=== PATIENT | male | born 1970 | race Caucasian/White ===

== ENCOUNTER → 2023-08-01 08:07 | Outpatient (CLI) | payer BC, SELFPAY ==
--- NOTE | ~2023-08-01 | CT_ITS ---
CT Scan of the Chest without Contrast: Clinical Indication: Lung cancer screening, smoking history Technique: Contiguous sections were acquired throughout the chest without intravenous contrast. Dose reduction technique was used on this scan by utilizing automated exposure control and iterative recon struction technique. The dose-length product (DLP) was 64.58 mGy-cm. Findings: There is no evidence of any significant mediastinal, hilar or axillary lymphadenopathy. The mediastin al soft tissues appear normal. There is no evidence of pleural or pericardial effusion. 2 mm right upper lobe pulmonary nodule noted. Mild emphysema noted. 5 mm perifissural nodule noted in the right middle lobe. There are mild interstitial opacities with minimal nodularity in the left low er lobe inferiorly. Images through the upper abdomen reveal no abnormalities. Probable late subacute versus chronic fract ure deformity of the upper sternal body. Impression: Lung RADS 2: Benign appearance. 12 month follow-up screening CT advised. Reviewed, dictated and finalized at [facility]. COMPOSER FEEDER Impression: Lung RADS 2: Benign appearance. 12 month follow-up screening CT advised.
== END ==
PROVIDERS: PCP Internal Medicine; Visit Provider Internal Medicine
DX: Z12.2 Encounter for screening for malignant neoplasm of respiratory organs (principal); Z87.891 Personal history of nicotine dependence
CPT/HCPCS: 71271

== ENCOUNTER 2024-08-03 15:31 | Outpatient (CLI) | payer BC, SELFPAY ==
--- NOTE | ~2024-08-03 | CT_ITS ---
CT Scan of the Chest without Contrast: Clinical Indication: Nicotine dependence Technique: Contiguous sections were acquired throughout the chest without intravenous contrast. Dose reduction technique was used on this scan by utilizing automated exposure control and iterative recon struction technique. The dose-length product (DLP) was 102.80 mGy-cm. COMPARISON: 08/01/2023 Findings: There is no evidence of any significant mediastinal, hilar or axillary lymphadenopathy. The mediastin al soft tissues appear normal. There is no evidence of pleural or pericardial effusion. Stable 2 mm right upper lobe pulmonary nodule. Nodule adjacent to the right minor fissure seen on chaparro or exam is resolved. There is mild to moderate emphysema in the upper lobes. Images through the upper abdomen reveal no abnormalities. Impression: Mild to moderate emphysema. Stable 2 mm right upper lobe pulmonary nodule. Additional right middle lobe nodule is resolved. Reviewed, dictated and finalized at [facility]. CHECKER Impression: Mild to moderate emphysema. Stable 2 mm right upper lobe pulmonary nodule. Additional right middle lobe nod ule is resolved.
== END 2024-08-03 15:32 | disposition home or self-care (01) ==
LOC: MICIMG 15:33
PROVIDERS: PCP Internal Medicine; Visit Provider Internal Medicine
DX: Z12.2 Encounter for screening for malignant neoplasm of respiratory organs (principal); F17.211 Nicotine dependence, cigarettes, in remission; J43.9 Emphysema, unspecified; R91.8 Other nonspecific abnormal finding of lung field
CPT/HCPCS: 71250

== ENCOUNTER 2025-08-04 15:37 | Outpatient (CLI) | payer BC, SELFPAY ==
--- NOTE | ~2025-08-04 | CT_ITS ---
EXAMINATION: CT lung screening DATE: 08/04/2025 15:59 INDICATION: Nicotine dependence TECHNIQUE: Computed tomography (CT) of the chest was performed without intravenous contrast. The dose-length product was 103.71 mGy-cm. Automated exposure control and iterative reconstruction technique were employed. COMPARISON: Comparison to multiple prior studies sequentially, with oldest reviewed study dated CT dated 08/01/2023. FINDINGS: Heart size normal. No significant pleural or pericardial effusion. No thoracic lymphadenopathy. There is an accessory splenule in the upper abdomen. Otherwise, the upper abdomen is unremarkable. There is emphysema. No endobronchial lesions. There is a 2 mm right upper lobe nodule. No pneumothorax. No focal airspace consolidation. No new pulmonary nodules or masses. Mild thoracic spondylosis. IMPRESSION: 1. Lung-RADS category 2: Benign appearance or behavior. Continue annual screening with noncontrast low-dose chest CT in 12 months. Reviewed, dictated and finalized at [facility]. SORTER IMPRESSION: 1. Lung-RADS category 2: Benign appearance or behavior. Continue annual screeni ng with noncontrast low-dose chest CT in 12 months.
== END 2025-08-04 15:38 | disposition home or self-care (01) ==
LOC: MICIMG 15:37
PROVIDERS: PCP Internal Medicine; Visit Provider Internal Medicine
DX: Z12.2 Encounter for screening for malignant neoplasm of respiratory organs (principal); F17.211 Nicotine dependence, cigarettes, in remission
CPT/HCPCS: 71271